=== PATIENT | male | born 1985 | race African-American/Black ===

== ENCOUNTER 2017-03-12 10:20 | Emergency (ER) | payer OTHER ==
[~2017-03-12] VITALS: Ht 182.9 cm; Wt 81.0 kg
[2017-03-12] MEDS ORDERED: IBUPROFEN 800MG TABLET PO ONE (10:45)
[2017-03-12 15:09] VITALS: BP 146/77
== END 2017-03-12 15:09 | disposition home or self-care (01) ==
LOC: ER 11:34
DX: M25.512 Pain in left shoulder (principal); M25.532 Pain in left wrist; F90.9 Attention-deficit hyperactivity disorder, unspecified type; R03.0 Elevated blood-pressure reading, without diagnosis of hypertension; Z88.8 Allergy status to other drugs, medicaments and biological substances; V49.9XXA Car occupant (driver) (passenger) injured in unspecified traffic accident, initial encounter; Y93.89 Activity, other specified; Y92.89 Other specified places as the place of occurrence of the external cause; Y99.8 Other external cause status
CPT/HCPCS: 71010; 73030; 73110; 93005; 99284